=== PATIENT | female | born 2000 ===

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

== ENCOUNTER 2019-03-03 19:27 | Emergency (ER) | payer SELFPAY ==
[2019-03-03 19:27] VITALS: BMI 22.4
[2019-03-03 19:50] VITALS: TEMP 98.8; O2SAT 100
[2019-03-03 20:53] VITALS: BP 131/58; PULSE 76; RESP 17
--- NOTE | 2019-03-03 21:25 | ED PDOC ---
Arrival/HPI <Corey Hou - Last Filed: 03/03/19 21:58> - General Historian: Patient, Family (Sister) - History of Present Illness Narrative History of Present Illness (Text): 03/03/19 21:22 18-year-old female presents today with left foot injury. Patient states she was cleaning the house and a stack of about 8 metal dishes fell landing directly on the left foot causing an abrasion to the dorsal aspect of the foot. Patient states her tetanus shot is up-to-date as [place] and it was updated at that time. Patient states the incident occurred at 5 PM. Patient states at that time she took Tylenol for pain. Armin bentley is complaining of pain over the dorsal aspect of the foot over the first second metatarsals as well as the first great toe. Time/Duration: Other (5pm) Symptom Onset: Sudden Quality: Throbbing Severity Level: Mild <Karolina Everett - Last Filed: 03/03/19 23:26> - General Chief Complaint: Lower Extremity Problem/Injury Time Seen by Provider: 03/03/19 19:28 Past Medical History - Provider Review Nursing Documentation Reviewed: Yes - Travel History Have you recently traveled outside [place] w/in the past 3 mons?: No - Infectious Disease Hx of Infectious Diseases: None - Psychiatric Hx Substance Use: No - Anesthesia Hx Anesthesia: No Hx Anesthesia Reactions: No Hx Malignant Hyperthermia: No <Karolina Everett - Last Filed: 03/03/19 23:26> Family/Social History - Physician Review Nursing Documentation Reviewed: Yes Family/Social History: Unknown Family HX Smoking Status: Never Smoked Hx Alcohol Use: No Hx Substance Use: No <Karolina Everett - Last Filed: 03/03/19 23:26> Allergies/Home Meds <Corey Hou - Last Filed: 03/03/19 21:58> <Karolina Everett - Last Filed: 03/03/19 23:26> Allergies/Adverse Reactions: Allergies No Known Allergies Allergy (Verified 03/03/19 19:51) Review of Systems - Review of Systems Constitutional: absent: Fatigue, Fevers Respiratory: absent: SOB, Cough Cardiovascular: absent: Chest Pain, Palpitations Gastrointestinal: absent: Abdominal Pain, Nausea, Vomiting Musculoskeletal: Arthralgias Skin: Other (abrasion left foot). absent: Rash, Pruritis Neurological: absent: Headache, Dizziness Psychiatric: absent: Anxiety, Depression <Karolina Everett - Last Filed: 03/03/19 23:26> Physical Exam Vital Signs Temp Pulse Resp BP Pulse Ox 03/03/19 20:52 76 17 131/58 L 100 03/03/19 19:42 98.8 F 84 18 106/66 100 <Corey Hou - Last Filed: 03/03/19 21:58> Vital Signs Reviewed: Yes Vital Signs Temp Pulse Resp BP Pulse Ox 03/03/19 20:52 76 17 131/58 L 100 03/03/19 19:42 98.8 F 84 18 106/66 100 Temperature: Afebrile Blood Pressure: Normal Pulse: Regular Respiratory Rate: Normal Appearance: Positive for: Well-Appearing, Non-Toxic, Comfortable Pain Distress: None Mental Status: Positive for: Alert and Oriented X 3 - Systems Exam Head: Present: Atraumatic Mouth: Present: Moist Mucous Membranes Neck: Present: Normal Range of Motion Respiratory/Chest: Present: Clear to Auscultation Cardiovascular: Present: Regular Rate and Rhythm Lower Extremity: Present: NORMAL PULSES, Normal ROM, Tenderness (left foot; + small 0.5cm superficial abrasion noted over the dorsal aspect of the foot. + edema. no erythema. no ecchymosis; full rom of foot; + ttp over 1st and 2nd metatarsals and great toe. ), Swelling, Neurovascularly Intact, Capillary Refill < 2 s. No: CALF TENDERNESS, Erythema Neurological: Present: GCS=15, Speech Normal, Motor Func Grossly Intact, Normal Sensory Function Skin: Present: Warm, Dry Psychiatric: Present: Alert, Oriented x 3 <Karolina Everett - Last Filed: 03/03/19 23:26> Medical Decision Making - RAD Interpretation Radiology Orders: 03/03/19 20:34 FOOT LEFT 3 VIEWS ROUTINE [RAD] Stat - Medication Orders Current Medication Orders: Discontinued Medications Bacitracin (Bacitracin) 1 ea TOP ONCE ONE Stop: 03/03/19 21:31 Cephalexin Monohydrate (Keflex) 500 mg PO STAT STA; Protocol Stop: 03/03/19 21:22 Ibuprofen (Motrin Tab) 400 mg PO STAT STA Stop: 03/03/19 21:22 <Corey Hou - Last Filed: 03/03/19 21:58> ED Course and Treatment: 03/03/19 21:25 Patient nontoxic well-appearing in no distress with stable vital signs X-rays of the foot: ? chip fracture great toe motrin po keflex po Wound cleaned and irrigated with high-pressure irrigation. Bacitracin applied. Dressing applied. crutches given for ambulation. I discussed all results in depth with the patient advised to followup with the orthopedist within the next 2 days. Return if symptoms worsen persist or new symptoms develop advised keeping the wound clean and dry and applying bacitracin twice daily. I advised return if signs of infection develop Patient verbalizes understanding of discharge instructions and need for immediate followup. All aspects of this case were discussed the attending of record. Impression: foot pain, abrasion foot, fracture, toe, contusion foot Motrin every 6 hours as needed for pain Keep the wound clean and dry, apply bacitracin twice daily Keflex 4 times daily x 5 days Rest, ice, compression, elevation Use crutches for ambulation Followup with the orthopedist/antitank assault gunner within the next 2 days Followup with primary care physician within the next 2 days Return if symptoms worsen persist or if new symptoms develop Reassessment Condition: Re-examined, Improved - RAD Interpretation Radiology Orders: 03/03/19 20:34 FOOT LEFT 3 VIEWS ROUTINE [RAD] Stat - Medication Orders Current Medication Orders: Cephalexin Monohydrate (Keflex) 500 mg PO STAT STA; Protocol Stop: 03/03/19 21:22 Ibuprofen (Motrin Tab) 400 mg PO STAT STA Stop: 03/03/19 21:22 <Karolina Everett - Last Filed: 03/03/19 23:26> - PA / DYE AND CHEMICAL COORDINATOR / Resident Statement MD/DO has reviewed & agrees with the documentation as recorded. <Corey Hou - Last Filed: 03/03/19 21:58> Disposition/Present on Arrival <Corey Hou - Last Filed: 03/03/19 21:58> - Present on Arrival Any Indicators Present on Arrival: No History of DVT/PE: No History of Uncontrolled Diabetes: No Urinary Catheter: No History of Decub. Ulcer: No History Surgical Site Infection Following: None - Disposition Have Diagnosis and Disposition been Completed?: Yes Disposition Time: 21:27 Patient Plan: Discharge <Karolina Everett - Last Filed: 03/03/19 23:26> - Disposition Diagnosis: Contusion, foot, Foot pain, Abrasion, foot, Fracture, toe Disposition: HOME/ ROUTINE Condition: GOOD Discharge Instructions (ExitCare): Muscle and Bone Pain (DC), Contusion (DC), Skin Abrasions (DC) Additional Instructions: Motrin every 6 hours as needed for pain keflex; 4 times daily x 5 days. Keep the wound clean and dry, apply bacitracin twice daily Rest, ice, compression, elevation Use crutches for ambulation Followup with the orthopedist/antitank assault gunner within the next 2 days Followup with primary care physician within the next 2 days Return if symptoms worsen persist or if new symptoms develop Prescriptions: Bacitracin OINT 1 applic TP BID #1 tube Cephalexin [Keflex] 500 mg PO QID #20 capsule Ibuprofen [Motrin Tab] 400 mg PO Q6H PRN #20 tab PRN Reason: Pain, Mild (1-3) Referrals: Bety Smith DPM [Staff Provider] - Follow up with primary Antonino Barillas MD [Staff Provider] - Follow up with primary [facility] at [Outside] - Follow up with primary [facility] at [place] [Outside] - Follow up with primary Pod[facility] Clinic [Outside] - Follow up with primary Forms: [employer] ([place]izen [place]), WORK NOTE
[2019-03-03] MEDS ORDERED: Bacitracin 500 Units/gm Oint Foilpak UD TOP ONE (21:30)
--- NOTE | 2019-03-04 09:09 | RAD ---
Date of service: 03/03/2019 PROCEDURE: Left Foot Radiographs. HISTORY: foot pain/ dropped metal plates on foot COMPARISON: None. TECHNIQUE: 3 views obtained. FINDINGS: BONES: Normal. No fracture. JOINTS: Normal. SOFT TISSUES: Normal. OTHER FINDINGS: None. IMPRESSION: Normal left foot radiographs.
== END 2019-03-03 21:59 | disposition home or self-care (01) ==
LOC: ED 19:27
DX: S92.912A Unspecified fracture of left toe(s), initial encounter for closed fracture (principal); S90.32XA Contusion of left foot, initial encounter; S90.812A Abrasion, left foot, initial encounter; W20.8XXA Other cause of strike by thrown, projected or falling object, initial encounter; Y93.E9 Activity, other interior property and clothing maintenance; Y92.009 Unspecified place in unspecified non-institutional (private) residence as the place of occurrence of the external cause